=== PATIENT | male | born 1940 | race Caucasian/White ===

== ENCOUNTER 2019-04-19 09:24 | Outpatient (RCR) | payer MEDICARE, SELFPAY ==
[2019-02-05 12:32] LABS: INR 3.5; Prothrombin Time 36.2 Seconds (9.64-11.0)
[2019-02-22 13:00] LABS: INR 3.3; Prothrombin Time 34.8 Seconds (9.64-11.0)
[2019-04-03 08:07] LABS: INR 4.7; Prothrombin Time 49.4 Seconds (9.64-11.0)
[2019-04-19 09:56] LABS: INR 1.8; Prothrombin Time 18.7 Seconds (9.64-11.0)
== END 2019-05-06 23:59 | disposition home or self-care (01) ==
LOC: CHSLAB 09:24
PROVIDERS: PCP Internal Medicine
DX: I48.91 Unspecified atrial fibrillation (principal)
CPT/HCPCS: 36415; 85610

== ENCOUNTER 2019-05-03 11:07 | Inpatient (IN) | payer MEDICARE, SELFPAY ==
[2019-05-03] VITALS (18 sets, daily range): BP systolic 131–173; BP diastolic 79–107; PULSE 72–147; RESP 18–35; TEMP 36.3–36.8; O2SAT 81–100; BMI 21.8
--- NOTE | ~2019-05-03 | US_ITS ---
US venous doppler [facility] DATE: 05/04/2019 09:46 INDICATION: Shortness of breath, swelling of the lower extremities TECHNIQUE: Real-time and color flow imaging and Doppler analysis of the veins of the lower extremitie s COMPARISON: None FINDINGS: The greater saphenous veins are patent. There is spontaneous and phasic flow and normal aug mentation and color flow signal and normal compression of the deep veins of both lower extremities. IMPRESSION: No evidence of deep venous thrombosis of the lower extremities Reviewed, dictated and finalized at [facility]. Reviewed, dictated and finalized at location [facility]. H BREAKER MACHINE OPERATOR
--- NOTE | ~2019-05-03 | XR_ITS ---
EXAMINATION: XR barium swallow modified DATE: 05/04/2019 14:46 INDICATION: Dysphagia. TECHNIQUE: The patient was given barium-containing material of multiple consistencies to swallow by calvin montague speech pathologist while I performed fluoroscopy. Dose-area product was 1.255 Gy-cm2. 2.1 minutes fluoroscopy time FINDINGS: Oral Preparatory Stage: Within functional limits Oral Stage: Within functional limits Pharyngeal Phase: Within functional limits Cervical/Esophageal Stage: Within functional limits IMPRESSION: Modified esophagram findings as above. Please refer to the speech therapy report for spec [facility] recommendations. Reviewed, dictated and finalized at [facility]. Reviewed, dictated and finalized at location [facility]. STATION ATTENDANT IMPRESSION: Modified esophagram findings as above. Please refer to the speech t herapy report for specific recommendations.
--- NOTE | ~2019-05-03 | XR_ITS ---
EXAMINATION: XR chest 1V portable EXAM DATE: 05/03/2019 11:35 INDICATION: Cough and shortness of breath. TECHNIQUE: Frontal and lateral projections of the chest obtained and reviewed. Comparison is made to prior examination from 09/19/2016. FINDINGS: There is moderate amount of patchy bilateral airspace disease, could be multifocal broncho pneumonia. There is small right pleural effusion. Cardiomediastinal silhouette is normal. The main, c entral pulmonary arteries are dilated which can indicate elevated pulmonary arterial pressure, pulmon javier arterial hypertension. Can't exclude any underlying chronic process. There are bony degenerative changes. There is no pneumothorax suspected. IMPRESSION: 1. Moderate bilateral airspace disease could be acute bronchopneumonia. 2. Small right pleural effusion. 3. Follow-up indicated to exclude any underlying chronic process. Reviewed, dictated and finalized at location A. TRUCTION OR LEAK GANG LABORER
--- NOTE | 2019-05-03 11:21 | ED.SOB ---
HPI - SOB/Dyspnea General Chief Complaint: Shortness of Breath/Dyspnea Stated Complaint: diff breathing Time Seen by Provider: 05/03/19 11:21 Source: patient Mode of arrival: ambulatory Limitations: no limitations History of Present Illness HPI Narrative: Pt is a 79 y/o male who presents to the ED with c/o SOB that woke him up at 4AM this morning. Pt states that he is unable to cough and has BLE swelling. His manager risk is Dr. Dejesus in [place]. He has a H/o of AFIB and is on warfarin. MD elicited complaint: shortness of breath Onset (ago): hour(s) (7) Context: other (woke him up) Timing: constant Known history of: other (AFIB) Associated symptoms: other (BLE swelling) Related Data Allergies Allergy/AdvReac Type Severity Reaction Status Date / Time No Known Allergies Allergy Verified 05/03/19 11:26 Review of Systems Review of Systems: All systems reviewed & are unremarkable except as noted in HPI and below Respiratory: Respiratory: Denies cough and Reports dyspnea Musculoskeletal: Musculoskeletal: Reports other (BLE swelling) [facility] Past Medical History Medical History (Updated 05/03/19 @ 16:26 by Oswaldo Bonilla DO) Afib Anxiety Jacobs esophagus Brain aneurysm CAD (coronary artery disease) Cancer of right lung GERD (gastroesophageal reflux disease) HTN (hypertension) Hypothyroid Liver cyst Rheumatoid arthritis TIA (transient ischemic attack) Surgical History Surgical History (Updated 05/03/19 @ 11:31 by Nicole Masters) History of hydrocelectomy Hx of cholecystectomy Family History Family History (Updated 05/01/17 @ 11:03 by DOCTOR UNKNOWN) Other Family history of cardiovascular disease Hypertension Social History Social History Smoking status: Current every day smoker Alcohol intake: never Substance use: never Gender identity (if verbalized by the patient): Male Spiritual care concerns: No Agree to blood products: Yes Exam Narrative: Exam Narrative: APPEARANCE: Severe respiratory distress, sitting upright in bed, speaking short phrases nontoxic, resting in bed HEENT: Normocephalic, atraumatic OMM RESPIRATORY: Severe respiratory distress, sitting upright, crackles throughout the bilateral lung snell, no wheezing CARDIOVASCULAR: Irregular and tachycardic without murmurs rubs or gallops. ABDOMINAL: Soft, nontender, nondistended, no rebound or guarding MUSCULOSKELETAl: Moves all extremities. No clubbing, cyanosis 3+ edema the bilateral lower extremities NEURO: Awake and alert. Following commands, speech normal, no focal deficits SKIN:: Warm, dry. Normal Color PSYCHIATRIC: Normal affect/mood, Course Course Emergency Course: Patient is breathing much better on the BiPAP. I discussed with patient and family while the patient normally receives care at [facility] to continue BiPAP Marianela ramos will admit at [facility] Discussed with patient and family results of workup and diagnosis. Discussed need for admission. Patient and family understand and agree to current treatment plan Consultations Consultation #1: Discussed case with Dr. Dey, the manager risk. Will consult. Wants an echo ordered. Date: 05/03/19 Time: 12:26 Consultation #2: Discussed case with JEFF Hurst for the hospitalist. Accepted admission. Date: 05/03/19 Time: 12:35 Vital Signs Vital signs: Vital Signs Temperature 98.3 F 05/03/19 11:21 Pulse Rate 138 H 05/03/19 11:21 Respiratory Rate 35 H 05/03/19 11:21 Blood Pressure 173/101 H 05/03/19 11:21 Pulse Oximetry 81 L 05/03/19 11:21 Temperature 98.3 F 05/03/19 11:21 Pulse Rate 77 05/03/19 15:56 Respiratory Rate 31 H 05/03/19 15:56 Blood Pressure 137/85 05/03/19 15:22 Pulse Oximetry 90 05/03/19 15:56 MDM - SOB/Dyspnea Lab Data Result diagrams: 05/03/19 11:28 05/03/19 11:28 Labs: Lab Results 05/03/19 05/03/19
--- NOTE | 2019-05-03 11:22 | ECG_ITS ---
Measurements Intervals [place] Rate: 159 P: DE: 0 QRS: 107 QRSD: 124 T: -40 QT: 303 QTc: 494 Interpretive Statements ATRIAL FIBRILLATION WITH RAPID VENTRICULAR RESPONSE FREQUENT VENTRICULAR PREMATURE COMPLEXES RIGHT AXIS DEVIATION RIGHT BUNDLE BRANCH BLOCK BASELINE ARTIFACT- I, II, III, AVL, AVF, V-V3 ABNORMAL ECG Electronically Signed On 05-03-2019 11:25:38 COIL MACHINE OPERATOR by Akil Villa D.O.
[2019-05-03 11:36] LABS: Hematocrit 41.9 % (42.0-52.0); Hemoglobin 12.5 g/dL (14.0-18.0); Mean Corpuscular HGB Conc 29.8 g/dl (32-36); Mean Corpuscular Hemoglobin 29.3 pg (26-34); Mean Corpuscular Volume 98.4 fl (80-100); Mean Platelet Volume 9.6 fl (7.4-10.4); Platelet Count Result 200 k/mm3 (150-375); Red Blood Count 4.26 M/mm3 (4.6-6.20); Red Cell Distribution Width 20.2 % (11.5-14.5); White Blood Count 28.5 K/mm3 (4.5-10.0)
[2019-05-03 11:42] LABS: Hypochromasia 1+ (NORMAL); Lymphocytes Absolute Manual 1.42 K/mm3 (1.1-4.5); Monocytes Absolute Manual 0.57 K/mm3 (0.1-0.90); Monocytes Percent Manual 2 % (3-9); Neutrophils Percent Manual 93 % (46-73); Platelet Estimate Adequate (Adequate); Total Cells Counted 100
[2019-05-03 11:49] LABS: Blood Urea Nitrogen 16 mg/dL (9-20); Calcium 8.6 mg/dL (8.4-10.2); Carbon Dioxide 29 mmol/L (22-30); Chloride 98 mmol/L (98-107); Estimated CRCL calculation 65 ml/min; Estimated Glomerular Filt Rate > 60; Glucose 109 mg/dL (75-110); Lactic Acid Reflex 2.6 mmol/L (0.7-2.1); Potassium 3.4 mmol/L (3.4-5.0); Sodium 136 mmol/L (137-145)
[2019-05-03 11:52] LABS: INR 2.5; Prothrombin Time 26.8 Seconds (11.1-14.7)
[2019-05-03 11:52] LABS: Alveolar/Arterial O2 Gradient 149.2 mmHg; Base Excess ABG -0.1 mEq/l (+/-2.0); Fractional Inspired Oxygen 40 %; Oxygen Content ABG 16.3 %vol (16.0-22.0); Oxygen Saturation ABG 92.9 % (95.0-100.0); Oxyhemoglobin 88.9 % THb (90.0-100.0); PCO2 ABG 55.2 mmHg (35.0-45.0); PO2 ABG 72.5 mmHg (80.0-100.0); PO2 FiO2 Ratio Arterial Blood 1.81 %; pH ABG 7.308 (7.350-7.450)
[2019-05-03 11:53] LABS: Partial Thromboplastin Time 37.1 SECONDS (22.3-36.8)
[2019-05-03 11:54] LABS: Modified Allen's Test Pass; Site Drawn RIGHT RADIAL
[2019-05-03 11:55] LABS: Device NON-REBREATHER MASK
[2019-05-03 12:02] LABS: NT Pro B Type Natriuretic Pept 14500 PG/ML (5-100); Troponin I 0.021 ng/mL (0.000-0.034)
[2019-05-03] MEDS: SODIUM CHLORIDE 0.9% IV 500 ML 250 ML IV CONT (13:29)
[2019-05-03 14:34] LABS: Reflex Lactic Acid Yes or No Add Lactic
--- NOTE | 2019-05-03 15:32 | PM.CNCAR ---
Assessment and Plan Assessment and plan (1) Pneumonia: Code(s): J18.9 - Pneumonia, unspecified organism Status: Acute Assessment and Plan: Management per primary care (2) HTN (hypertension): Code(s): I10 - Essential (primary) hypertension Status: Acute Assessment and Plan: Currently well controlled. Continue medications (3) Afib: Code(s): I48.91 - Unspecified atrial fibrillation Status: Acute Assessment and Plan: Heart is moderately well controlled. Continue Cardizem for night for now. Continue current anticoagulation of Coumadin. Goal INR between 2 and 3 agree with echo to evaluate LV function. Thank you for consult. Will follow this patient together with you History of Present Illness History of Present Illness Consult date/time: 05/03/19 15:32 Mr. Mendez is a pleasant 79-year-old white male with past medical history of atrial fibrillation, GERD, hypothyroidism who presented to [facility] today because of shortness of breath. Patient is a poor historian and history is obtained predominantly from medical records, patient's family and nursing staff. According to the patient this morning his shortness of breath was getting significantly worse. he had some cough for last few days however denies any fever or chills. Patient is known to have pulmonary problems and is being followed by cork molder at [facility] in [facility]. Patient does have history of chronic atrial fibrillation and is being followed by merchandiser at [facility] (Dr. Dejesus). Pt does have occasional palpitations. He denies any chest discomfort or dizziness or syncopal episode. Patient was seen and examined while in the ER, records were reviewed, Case was discussed with ER physician, patient's family and his nurse. Reason For Visit: Acute respiratory failure with hypoxia Review of Systems Review of Systems: All systems reviewed & are unremarkable except as noted in HPI and below Constitutional: Constitutional: Reports as per HPI Eyes: Eyes: Reports as per HPI ENT: Reports system reviewed and no additional complaints, except as documented and Reports as per HPI Cardiovascular: Cardiovascular: Reports as per HPI, Reports rapid heart rate and Reports dyspnea Respiratory: Respiratory: Reports cough and Reports dyspnea Gastrointestinal: Gastrointestinal: Reports as per HPI Genitourinary: Genitourinary: Reports as per HPI Musculoskeletal: Musculoskeletal: Reports as per HPI [facility] Past Medical History Medical History (Updated 02/07/20 @ 15:45 by Demar Copeland MD) Afib Anxiety Jacobs esophagus Brain aneurysm CAD (coronary artery disease) Cancer of right lung GERD (gastroesophageal reflux disease) HTN (hypertension) Hypothyroid Liver cyst Rheumatoid arthritis TIA (transient ischemic attack) Surgical History Surgical History (Updated 05/03/19 @ 11:31 by Nicoel Masters) History of hydrocelectomy Hx of cholecystectomy Family History Family History (Updated 05/01/17 @ 11:03 by DOCTOR UNKNOWN) Other Family history of cardiovascular disease Hypertension Social History Social History Smoking status: Current every day smoker Alcohol intake: current Meds Home Medications and Allergies Allergies Allergy/AdvReac Type Severity Reaction Status Date / Time No Known Allergies Allergy Verified 05/03/19 11:26 Vital Signs Vital Signs - 24 hr 05/03/19 11:21 05/03/19 11:24 05/03/19 11:25 Temperature 36.8 C Pulse Rate 138 H 146 H Respiratory Rate 35 H Blood Pressure 173/101 H Pulse Oximetry 81 L 94 05/03/19 11:40 05/03/19 12:44 05/03/19 13:34 Temperature Pulse Rate 142 H 147 H Respiratory Rate 30 H 30 H 20 Blood Pressure 134/83 142/107 H Pulse Oximetry 100 05/03/19 14:57 05/03/19 15:22 Temperature Pulse Rate 122 H 108 H Respirator
--- NOTE | 2019-05-03 15:40 | ADMGEN ---
This patient, Moraima Mendez, was admitted to IMU Room 232-01. Patient/family oriented to hospital policies and general routines including ID bracelet, bed and alarms, visiting hours, pain management, procedures, bathroom and other care routines, personal items, smoking policy, room service/diet, and visiting hours. Valuables list has been completed. Information on how to activate the Rapid Response Team has been discussed. Patient/Family are encouraged to report perceived risks to care and to ask questions if they do not understand what they are told or what they should do.
[2019-05-03 16:30] LABS: Troponin I 0.028 ng/mL (0.000-0.034)
[2019-05-03] MEDS: FUROSEMIDE INJ 40 MG/4 ML VIAL 20 MG IV PUSH (17:08)
[2019-05-03 18:07] LABS: Alveolar/Arterial O2 Gradient 129.1 mmHg; Carboxyhemoglobin 2.1 % THb (0-2.0); Fractional Inspired Oxygen 40 %; HCO3 ABG 22.7 mEq/l (22.0-26.0); Methemoglobin ABG 0.4 %THb (0-1.5); Oxygen Content ABG 16.5 %vol (16.0-22.0); Oxygen Saturation ABG 97.6 % (95.0-100.0); Oxyhemoglobin 94.7 % THb (90.0-100.0); PCO2 ABG 43.2 mmHg (35.0-45.0); PO2 ABG 106.4 mmHg (80.0-100.0); PO2 FiO2 Ratio Arterial Blood 2.66 %; Reduced Hemoglobin 2.8 %THb (0-5.0); Total Hemoglobin 12.3 g/dL (12.0-18.0); pH ABG 7.339 (7.350-7.450)
[2019-05-03 18:08] LABS: Device NON-INVASIVE VENT; Modified Allen's Test Pass; Site Drawn LEFT RADIAL
[2019-05-03 18:09] LABS: Non-Invasive Expiratory Pressure 6 CMH2O; Non-Invasive Inspiratory Pressure 12 CMH2O
[2019-05-03 19:47] LABS: Troponin I 0.031 ng/mL (0.000-0.034)
--- NOTE | 2019-05-03 21:00 | PM.IMHP ---
H&P: HPI History of Present Illness Chief complaint: Shortness of breath. Narrative: Moraima Mendez is a pleasant 79-year-old male with multiple medical problems including atrial fibrillation on long-term anticoagulation, tobacco dependence, suspected COPD, rheumatoid arthritis, hypertension, and history of lung cancer status post radiation who presented to the emergency department earlier this morning via private vehicle from home for evaluation of shortness of breath. Approximately 2 or 3 weeks ago he had cold symptoms and was seen by his physician at [facility]. At that time he was diagnosed with ?possible pneumonia? and was prescribed an extra inhaler and antibiotics, which he completed. He seemed to feel better in that regard up until earlier this morning. He woke at 04:00 hours to use the restroom, and was extremely short of breath at that time. He used his inhalers however they did not provide him with much benefit. He was short of breath for several hours thereafter, and when his son came to visit he was noted to only be speaking in 2 word sentences and appeared to be in respiratory distress. On arrival to the emergency department, his SpO2 was 81% on room air. He was immediately placed on BiPAP due to respiratory distress, with improvement. At the time of my evaluation he is much more comfortable on BiPAP, but is wishing to take a break from that. When the BiPAP was removed, he was placed on 3 liters nasal cannula with SpO2 in the upper 90s. He did report that it was a bit harder to breathe with the BiPAP off. He does mention having a cough, but ?feels like it is stuck in my chest? and has not been very productive. He also notes mild orthopnea and the development of lower extremity edema over the last several weeks. Reportedly he had an echocardiogram done at [facility] within the past several weeks, which she was told was unremarkable. He was, however, started on daily furosemide. He adamantly denies history of congestive heart failure and has no history of venous thromboembolism. He has not felt lightheaded or dizzy. He denies fever, chills, and sweats. No dysphagia or concerns for aspiration. He denies chest pain and palpitations, and does not feel any irregularities although he is in atrial fibrillation with rapid ventricular response at this time. No nausea, vomiting, or diarrhea. Review of Systems Review of Systems: Narrative: Twelve systems were reviewed with pertinent positives and negatives as per HPI. He recently treated with antibiotics as per HPI. Symptoms had improved up until early this morning. He has felt weak since that time. No confusion. No history of sleep apnea. No significant GERD or indigestion. He denies concerns for aspiration. No history of venous thromboembolism. He is on methotrexate for his rheumatoid arthritis, and is able to take up to 15 milligrams of prednisone daily as needed for pain but has not taken that for quite some time. Except as documented, all other systems were reviewed and are negative. [facility] Past Medical History Medical History (Updated 05/03/19 @ 22:45 by Leeanna Winter PA-C) Anxiety Atrial fibrillation Jacobs esophagus Brain aneurysm Coiled in August 2016. Cancer of right lung Treated with radiation. GERD (gastroesophageal reflux disease) HTN (hypertension) Hypothyroid Liver cyst Rheumatoid arthritis TIA (transient ischemic attack) Tobacco dependence Surgical History Surgical History (Updated 05/03/19 @ 22:36 by Leeanna Winter PA-C) History of hydrocelectomy Hx of cholecystectomy Status post left inguinal herniorrhaphy Family History Family History Other Family history of cardiovascular disease Hypertension Social History Social History (Updated 05/03/19 @ 22:36 by Leeanna Winter PA-C) Social History: The patient lives with his daughter in [place]. He is retired and
[2019-05-03] MEDS: IPRATROPIUM BR 0.02% INH SOLN 0.5 MG/2.5 ML VIAL INHALATION (23:09)
[2019-05-03] MEDS: methylPREDNISolone SOD SUCC 125 MG VIAL 80 MG IV PUSH (23:44)
[2019-05-04] VITALS (31 sets, daily range): BP systolic 109–125; BP diastolic 73–86; PULSE 88–136; RESP 16–27; TEMP 36.2–37; O2SAT 91–100
--- NOTE | 2019-05-04 | ECHO_ITS ---
Patient Info Name: Moraima Mendez Age: 79 years : 1940 Gender: Male Ht: 71 in Wt: 158 lbs BSA: 1.89 m2 HR: 109 bpm BP: 122 / 86 mmHg Technical Quality: Good Exam Date: 05/04/2019 7:02 AM Exam Location: [facility] Patient Status: Inpatient Admit Date: 05/03/2019 Staff Ordering Physician: Oswaldo Bonilla DO [place] Miner: Apple Balbuena RDCS Attending Provider: Byron Galarza MD Referring Physician: Chad CRAIG; Exam Type: CA echo doppler color flow Study Info Complete two-dimensional, color flow and Doppler transthoracic echocardiogram is performed. Summary 1. Left ventricular chamber dimension is normal. 2. Left ventricular systolic function is normal, estimated at 65-70%. 3. There is mildly increased left ventricular wall thickness. 4. Right ventricular chamber dimension is mildly enlarged. 5. moderate sclerosis of the aortic valve leaflets. 6. There is trace mitral valve regurgitation. 7. There is mild tricuspid valve regurgitation. 8. There is mild aortic valve stenosis. Left Ventricle Left ventricular chamber dimension is normal. Left ventricular systolic function is normal, estimated at 65-70%. There is mildly increased left ventricular wall thickness. The left ventricular diastolic function is normal. Right Ventricle Right ventricular chamber dimension is mildly enlarged. Right ventricular systolic function is normal. Left Atria Left atrial chamber dimension is normal. Right Atria Right atrial chamber dimension is normal. Aortic Valve The aortic valve is trileaflet. There is mild aortic valve stenosis. There is no aortic valve regurgitation. moderate sclerosis of the aortic valve leaflets. Mitral Valve The mitral valve has normal leaflets. There is no mitral valve stenosis. There is trace mitral valve regurgitation. Tricuspid Valve There is mild tricuspid valve regurgitation. Pericardium/Pleural The pericardium appears normal. There is no pericardial effusion. Left Ventricular Outflow Tract Name Value Normal LVOT 2D LVOT Diameter 2.1 cm LVOT Doppler LVOT Peak Velocity 87 cm/s LVOT Peak Gradient 3 mmHg LVOT Mean Gradient 1 mmHg LVOT VTI 13 cm LVOT VTI/AV VTI Ratio 0.3 LVOT Stroke Volume 44 ml LVOT CO 4.8 l/min LVOT CI 2.6 l/min/m2 Pulmonic Valve Name Value Normal PV Doppler PV Peak Velocity 82 cm/s PV Peak Gradient 3 mmHg Mitral Valve Name Value Normal
[2019-05-04] MEDS: METOPROLOL TARTRATE 50 MG TAB PO ×3 (00:51→20:48)
[2019-05-04] MEDS: ALPRAZOLAM 0.5 MG TABLET PO ×2 (00:51→20:49)
[2019-05-04] MEDS: IPRATROPIUM BR 0.02% INH SOLN 0.5 MG/2.5 ML VIAL INHALATION ×4 (01:41→21:44)
[2019-05-04 05:22] LABS: Basophils Percent Auto 0.1 % (0.2-1.2); Eosinophils Percent Auto 0.1 % (0-4.4); Hematocrit 38.1 % (42.0-52.0); Hemoglobin 11.5 g/dL (14.0-18.0); Immature Granulocyte Absolute 0.15 K/mm3 (0.00-0.031); Immature Granulocyte Percent A 0.9 % (0-0.5); Lymphocytes Absolute Auto 0.19 K/mm3 (0.9-3.2); Lymphocytes Percent Auto 1.1 % (18.3-44.2); Mean Corpuscular HGB Conc 30.2 g/dl (32-36); Mean Corpuscular Hemoglobin 29.2 pg (26-34); Mean Corpuscular Volume 96.7 fl (80-100); Mean Platelet Volume 9.2 fl (7.4-10.4); Monocytes Percent Auto 0.2 % (2.6-8.5); Neutrophils Absolute Auto 16.9 K/mm3 (1.3-6.7); Neutrophils Percent Auto 97.6 % (45.5-73.1); Platelet Count Result 137 k/mm3 (150-375); Red Blood Count 3.94 M/mm3 (4.6-6.20); Red Cell Distribution Width 19.5 % (11.5-14.5); White Blood Count 17.3 K/mm3 (4.5-10.0)
[2019-05-04 05:26] LABS: INR 2.9
[2019-05-04 05:32] LABS: Blood Urea Nitrogen 15 mg/dL (9-20); Calcium 8.4 mg/dL (8.4-10.2); Carbon Dioxide 32 mmol/L (22-30); Chloride 99 mmol/L (98-107); Estimated CRCL calculation 65 ml/min; Estimated Glomerular Filt Rate > 60; Glucose 99 mg/dL (75-110); Potassium 4.2 mmol/L (3.4-5.0); Sodium 138 mmol/L (137-145)
[2019-05-04] MEDS: LEVOTHYROXINE SODIUM 75 MCG TABLET PO (06:57)
[2019-05-04 07:28] LABS: Hypochromasia 1+ (NORMAL); Ovalocytes 1+ (NORMAL); Platelet Estimate Decreased (Adequate)
[2019-05-04] MEDS: CHOLECALCIFEROL 400 UNITS TABLET (VIT D) PO (09:06)
[2019-05-04] MEDS: FERROUS SULFATE 324 MG TABLET PO (09:06)
[2019-05-04] MEDS: FOLIC ACID 0.4 MG TABLET PO (09:06)
[2019-05-04] MEDS: PANTOPRAZOLE 40 MG TABLET PO ×2 (09:06→16:20)
[2019-05-04] MEDS: FUROSEMIDE 40 MG TABLET PO (09:06)
[2019-05-04] MEDS: CYANOCOBALAMIN 1,000 MCG TABLET 1000 MCG PO (09:06)
[2019-05-04] MEDS: MEGESTROL ACETATE (*CHEMO) ORAL SUSP 40 MG/ML SYR 400 MG PO (09:07)
--- NOTE | 2019-05-04 11:58 | PM.PNCARD ---
Progress Note: A&P Assessment and Plan (1) Pneumonia: Code(s): J18.9 - Pneumonia, unspecified organism Status: Acute Assessment and Plan: Management per primary care (2) HTN (hypertension): Code(s): I10 - Essential (primary) hypertension Status: Acute Assessment and Plan: Currently well controlled. Continue medications (3) Afib: Code(s): I48.91 - Unspecified atrial fibrillation Status: Acute Assessment and Plan: Heart is moderately well controlled. Continue Cardizem for night for now. We increased the rate to 15 mg an hour, on follow-up rhythm, and was switched to oral Cardizem 1 rate is well controlled Echocardiogram showed normal left ventricular systolic function, mild pulmonary hypertension, and sclerotic aortic valve Subjective Date/time seen: 05/04/19 11:58 He feels slightly better today, still with tachycardia, currently on Cardizem drip, initially increased to 12 mg an hour, and now we can increase to 15 mg an hour Exam Const: General: alert, awake and in distress mild Nutritional Appearance: cachectic HENMT: Head: normal to inspection and atraumatic Ears: hearing grossly normal bilaterally Face and sinus: normal facial exam Eyes: General: appearance normal, both eyes and all related structures Pupils: Equal, round and reactive pupils present EOM: EOMs intact bilaterally Neck: Neck: normal visual inspection and no JVD Chest: Chest palpation & inspection: normal inspection of the chest Resp: Effort & Inspection: normal respiratory effort, Actively coughing and respiratory distress (mild on BIPAP) Auscultation: diminished lung sounds Cardio: Jugular venous distension: no JVD Rate: tachycardic Heart sounds: Murmur heart sound present systolic GI: Inspection: normal to inspection Auscultation: normal bowel sounds Skin: General skin exam: normal color Neuro: Cranial nerves: Yes Equal, round and reactive pupils present Extrem: General: edema bilateral (2+) Objective Data Vital Signs Vital Signs: Vital Signs - 24 hr 05/03/19 12:44 05/03/19 13:34 05/03/19 14:20 Temperature Pulse Rate 142 H 147 H 116 H Respiratory Rate 30 H 20 29 H Blood Pressure 134/83 142/107 H Pulse Oximetry 100 100 05/03/19 14:57 05/03/19 15:22 05/03/19 15:56 Temperature Pulse Rate 122 H 108 H 77 Respiratory Rate 18 18 31 H Blood Pressure 143/83 H 137/85 Pulse Oximetry 98 100 90 05/03/19 16:00 05/03/19 18:00 05/03/19 20:00 Temperature 36.3 C L 36.3 C L Pulse Rate 116 H 128 H 128 H Respiratory Rate 28 H 23 H Blood Pressure 165/82 H 131/79 Pulse Oximetry 92 92 05/03/19 20:53 05/03/19 22:00 05/03/19 23:00 Temperature Pulse Rate 125 H 120 H 122 H Respiratory Rate 23 H 23 H Blood Pressure Pulse Oximetry 92 05/03/19 23:13 05/03/19 23:15 05/04/19 00:00 Temperature Pulse Rate 122 H 122 H 121 H Respiratory Rate 23 H 23 H 25 H Blood Pressure Pulse Oximetry 91 100 05/04/19 00:30 05/04/19 00:51 05/04/19 01:35 Temperature 36.4 C L Pulse Rate 111 H 121 H 95 Respiratory Rate 25 H 21 H Blood Pressure 125/76 Pulse Oximetry 100 05/04/19 01:42 05/04/19 01:43 05/04/19 02:00 Temperature Pulse Rate 94 96 88 Respiratory Rate 21 H 21 H Blood Pressure Pulse Oximetry 91 05/04/19 04:00 05/04/19 05:55 05/04/19 08:00 Temperature 36.2 C L Pulse Rate 95 103 H 114 H Respiratory Rate 16 Blood Pressure 122/86 Pulse Oximetry 91 05/04/19 08:18 05/04/19 08:30 05/04/19 08:32 Temperature 36.9 C Pulse Rate 110 H 120 H 120 H Respiratory Rate 27 H 21 H 21 H Blood Pressure 110/73 Pulse Oximetry 100 96 05/04/19 08:41 05/04/19 09:06 05/04/19 10:00 Temperature Pulse Rate 116 H 136 H 107 H Respiratory Rate 20 Blood Pressure Pulse Oximetry Intake/Output Intake/Output: Intake & Output 05/01/19 05/02/19 05/03/19 05/04/19 23:59 23:59 23:59 23:59 Intake Total 900 2
--- NOTE | 2019-05-04 13:57 | P.PNIM_ITS ---
Progress Note: A&P Assessment and Plan (1) Sepsis: Qualifiers: Sepsis type: sepsis due to unspecified organism Sepsis acute organ dysfunction status: without acute organ dysfunction Qualified Code(s): A41.9 - Sepsis, unspecified organism Code(s): A41.9 - Sepsis, unspecified organism Status: Acute Assessment and Plan: * Present on admission and supported by tachycardia, leukocytosis, and elevated lactic acid level. * Improving after saline bolus and antibiotics * Blood cultures have been obtained and are pending. (2) Acute respiratory failure with hypoxia: Code(s): J96.01 - Acute respiratory failure with hypoxia Status: Acute Assessment and Plan: * Presumably due to pneumonia in addition to likely underlying COPD, which the patient has apparently never been diagnosed with. * BNP is markedly elevated, and he had an echocardiogram done last month with good left ventricular function * Tolerating nasal cannula oxygen and off BiPAP * Continue steroids antibiotics and bronchodilators (3) Atrial fibrillation with rapid ventricular response: Code(s): I48.91 - Unspecified atrial fibrillation Status: Acute Assessment and Plan: * Transition from IV to oral Cardizem * INR is therapeutic at 2.5. (4) Community acquired pneumonia: Qualifiers: Laterality: unspecified laterality Qualified Code(s): J18.9 - Pneumonia, unspecified organism Code(s): J18.9 - Pneumonia, unspecified organism Status: Acute Assessment and Plan: * Continue azithromycin and ceftriaxone per antibiotic stewardship recommenda tions. * Sputum for culture unsuccessful due to inability to produce * Will send specimens for urinary antigens for pneumococcus and Legionella * Continue antibiotics, steroids, and bronchodilators * Mucinex and Cornet for pulmonary toilet * Modified barium swallow * Patient is determined to go home May 05 to attend [facility] service for his daughter who approximately 2 weeks ago. (5) Tobacco dependence: Code(s): F17.200 - Nicotine dependence, unspecified, uncomplicated Status: Acute Assessment and Plan: * He declined smoking cessation or nicotine patch (6) Rheumatoid arthritis: Qualifiers: Rheumatoid arthritis location: unspecified site Rheumatoid factor presence: unspecified presence Qualified Code(s): M06.9 - Rheumatoid arthritis, unspecified Code(s): M06.9 - Rheumatoid arthritis, unspecified Status: Acute Assessment and Plan: * He takes methotrexate weekly and prednisone as needed. * He has not required prednisone for quite some time * Hold methotrexate due to acute infection Subjective Date/time seen: 05/04/19 13:57 Interval history: Nonproductive cough. Chronic left weakness. Denied pain. Bowels moved. No urinary complaints. No nausea or vomiting. No chest pain. No shortness of breath at rest. Chronic edema stable. No fevers or chills or sweats. Review of Systems Review of Systems: All systems reviewed & are unremarkable except as noted in HPI and below Exam Narrative: Exam Narrative: HEENT: EOMI, PERRL, pharyngeal mucosa pink and intact NECK: No JVD CHEST: Coarse breath sounds throughout HEART: NL S1/S2, irregular and tachycardic ABDOMEN: BS+, soft, nontender, no mass, no bruits EXTREMITIES: No cyanosis, 2+ pretibial and ankle edema with chronic venous stasis changes NEUROLOGIC: CN intact an
--- NOTE | 2019-05-04 13:57 | PM.IMPN ---
Progress Note: A&P Assessment and Plan (1) Sepsis: Qualifiers: Sepsis type: sepsis due to unspecified organism Sepsis acute organ dysfunction status: without acute organ dysfunction Qualified Code(s): A41.9 - Sepsis, unspecified organism Code(s): A41.9 - Sepsis, unspecified organism Status: Acute Assessment and Plan: Present on admission and supported by tachycardia, leukocytosis, and elevated lactic acid level. Improving after saline bolus and antibiotics Blood cultures have been obtained and are pending. (2) Acute respiratory failure with hypoxia: Code(s): J96.01 - Acute respiratory failure with hypoxia Status: Acute Assessment and Plan: Presumably due to pneumonia in addition to likely underlying COPD, which the patient has apparently never been diagnosed with. BNP is markedly elevated, and he had an echocardiogram done last month with good left ventricular function Tolerating nasal cannula oxygen and off BiPAP Continue steroids antibiotics and bronchodilators (3) Atrial fibrillation with rapid ventricular response: Code(s): I48.91 - Unspecified atrial fibrillation Status: Acute Assessment and Plan: Transition from IV to oral Cardizem INR is therapeutic at 2.5. (4) Community acquired pneumonia: Qualifiers: Laterality: unspecified laterality Qualified Code(s): J18.9 - Pneumonia, unspecified organism Code(s): J18.9 - Pneumonia, unspecified organism Status: Acute Assessment and Plan: Continue azithromycin and ceftriaxone per antibiotic stewardship recommendations. Sputum for culture unsuccessful due to inability to produce Will send specimens for urinary antigens for pneumococcus and Legionella Continue antibiotics, steroids, and bronchodilators [facility] pulmonary toilet Modified barium swallow Patient is determined to go home May 05 to attend [facility] service for his daughter who approximately 2 weeks ago. (5) Tobacco dependence: Code(s): F17.200 - Nicotine dependence, unspecified, uncomplicated Status: Acute Assessment and Plan: He declined smoking cessation or nicotine patch (6) Rheumatoid arthritis: Qualifiers: Rheumatoid arthritis location: unspecified site Rheumatoid factor presence: unspecified presence Qualified Code(s): M06.9 - Rheumatoid arthritis, unspecified Code(s): M06.9 - Rheumatoid arthritis, unspecified Status: Acute Assessment and Plan: He takes methotrexate weekly and prednisone as needed. He has not required prednisone for quite some time Hold methotrexate due to acute infection Subjective Date/time seen: 05/04/19 13:57 Interval history: Nonproductive cough. Chronic left weakness. Denied pain. Bowels moved. No urinary complaints. No nausea or vomiting. No chest pain. No shortness of breath at rest. Chronic edema stable. No fevers or chills or sweats. Review of Systems Review of Systems: All systems reviewed & are unremarkable except as noted in HPI and below Exam Narrative: Exam Narrative: HEENT: EOMI, PERRL, pharyngeal mucosa pink and intact NECK: No JVD CHEST: Coarse breath sounds throughout HEART: NL S1/S2, irregular and tachycardic ABDOMEN: BS+, soft, nontender, no mass, no bruits EXTREMITIES: No cyanosis, 2+ pretibial and ankle edema with chronic venous stasis changes NEUROLOGIC: CN intact and symmetric to inspection. MUSCULOSKELETAL: Tone and strength symmetric. PSYCH: Alert. Oriented to person, place, and time. Objective Data Vital Signs Vital Signs: Vital Signs - 24 hr 05/03/19 14:20 05/03/19 14:57 05/03/19 15:22 Temperature Pulse Rate 116 H 122 H 108 H Respiratory Rate 29 H 18 18 Blood Pressure 143/83 H 137/85 Pulse Oximetry 100 98 100 05/03/19 15:56 05/03/19 16:00 05/03/19 18:00 Temperature 97.4 F L Pulse Rate 77 116 H 128 H Resp
[2019-05-04] MEDS: methylPREDNISolone SOD SUCC 125 MG VIAL 60 MG IV PUSH (15:19)
[2019-05-04] MEDS: WARFARIN (*PBKC) 2 MG TABLET PO (16:21)
[2019-05-04] MEDS: SACCHAROMYCES BOULARDII 250 MG CAPSULE PO (18:51)
[2019-05-04] MEDS: AMIODARONE HCL 200 MG TABLET 400 MG PO (18:51)
[2019-05-05] VITALS (24 sets, daily range): BP systolic 108–128; BP diastolic 62–76; PULSE 86–119; RESP 17–20; TEMP 36.4–37.1; O2SAT 90–100
[2019-05-05] MEDS: IPRATROPIUM BR 0.02% INH SOLN 0.5 MG/2.5 ML VIAL INHALATION ×3 (01:42→15:24)
[2019-05-05 05:10] LABS: Hematocrit 31.5 % (42.0-52.0); Hemoglobin 9.7 g/dL (14.0-18.0); Mean Corpuscular HGB Conc 30.8 g/dl (32-36); Mean Corpuscular Volume 94.3 fl (80-100); Mean Platelet Volume 9.1 fl (7.4-10.4); Platelet Count Result 150 k/mm3 (150-375); Red Blood Count 3.34 M/mm3 (4.6-6.20); White Blood Count 11.7 K/mm3 (4.5-10.0)
[2019-05-05 05:28] LABS: Blood Urea Nitrogen 26 mg/dL (9-20); Calcium 8.7 mg/dL (8.4-10.2); Carbon Dioxide 29 mmol/L (22-30); Chloride 95 mmol/L (98-107); Estimated CRCL calculation 66 ml/min; Estimated Glomerular Filt Rate > 60; Glucose 173 mg/dL (75-110); Potassium 3.9 mmol/L (3.4-5.0); Sodium 134 mmol/L (137-145)
[2019-05-05] MEDS: LEVOTHYROXINE SODIUM 75 MCG TABLET PO (05:49)
[2019-05-05] MEDS: CYANOCOBALAMIN 1,000 MCG TABLET 1000 MCG PO (09:13)
[2019-05-05] MEDS: METOPROLOL TARTRATE 50 MG TAB PO (09:13)
[2019-05-05] MEDS: AMIODARONE HCL 200 MG TABLET 400 MG PO ×2 (09:13→15:51)
[2019-05-05] MEDS: FERROUS SULFATE 324 MG TABLET PO (09:13)
[2019-05-05] MEDS: CHOLECALCIFEROL 400 UNITS TABLET (VIT D) PO (09:13)
[2019-05-05] MEDS: PANTOPRAZOLE 40 MG TABLET PO ×2 (09:13→15:52)
[2019-05-05] MEDS: FOLIC ACID 0.4 MG TABLET PO (09:13)
[2019-05-05] MEDS: FUROSEMIDE 40 MG TABLET PO (09:14)
[2019-05-05] MEDS: SACCHAROMYCES BOULARDII 250 MG CAPSULE PO ×2 (09:14→15:52)
[2019-05-05] MEDS: predniSONE 20 MG TABLET 40 MG PO (09:14)
--- NOTE | 2019-05-05 11:16 | PCRCNOTE ---
HOME O2 EVAL COMPLETE; PT. DOES NOT REQUIRE HOME OXYGEN. PT.'S R.N. AND DR. KIM BOTH NOTIFIED OF THE RESULTS. GREEN CARD PLACED ON THE CHART.
--- NOTE | 2019-05-05 11:21 | PM.PNCARD ---
Progress Note: A&P Assessment and Plan (1) Pneumonia: Code(s): J18.9 - Pneumonia, unspecified organism Status: Acute Assessment and Plan: Management per primary care (2) HTN (hypertension): Code(s): I10 - Essential (primary) hypertension Status: Acute Assessment and Plan: Currently well controlled. Continue medications (3) Afib: Code(s): I48.91 - Unspecified atrial fibrillation Status: Acute Assessment and Plan: Heart rate is well controlled now, but he had to be started on amiodarone, okay to be discharged home but will cut the amiodarone to 200 mg p.o. 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 He is on Coumadin INR is therapeutic number he needs to have recheck on INR in view of recent use of amiodarone. He was instructed to have an INR checked in 3-4 days results to go to his doctor Dr. Dejesus or to myself Echocardiogram showed normal left ventricular systolic function, mild pulmonary hypertension, and sclerotic aortic valve Subjective Date/time seen: 05/05/19 11:21 Feels better today, still with mild cough and mild shortness of breath, no palpitation no dizziness, heart rate is now well controlled Exam Const: General: alert, awake and in distress mild Nutritional Appearance: cachectic HENMT: Head: normal to inspection and atraumatic Ears: hearing grossly normal bilaterally Face and sinus: normal facial exam Eyes: General: appearance normal, both eyes and all related structures Pupils: Equal, round and reactive pupils present EOM: EOMs intact bilaterally Neck: Neck: normal visual inspection and no JVD Chest: Chest palpation & inspection: normal inspection of the chest Resp: Effort & Inspection: normal respiratory effort, Actively coughing and respiratory distress (mild on BIPAP) Auscultation: diminished lung sounds Cardio: Jugular venous distension: no JVD Rate: tachycardic Heart sounds: Murmur heart sound present systolic GI: Inspection: normal to inspection Auscultation: normal bowel sounds Skin: General skin exam: normal color Neuro: Cranial nerves: Yes Equal, round and reactive pupils present Extrem: General: edema bilateral (2+) Objective Data Vital Signs Vital Signs: Vital Signs - 24 hr 05/04/19 12:00 05/04/19 13:19 05/04/19 14:00 Temperature 36.2 C L Pulse Rate 103 H 107 H 116 H Respiratory Rate 20 Blood Pressure 109/77 Pulse Oximetry 98 05/04/19 14:35 05/04/19 14:43 05/04/19 16:00 Temperature Pulse Rate 103 H 100 127 H Respiratory Rate 20 20 Blood Pressure Pulse Oximetry 05/04/19 16:49 05/04/19 18:00 05/04/19 18:51 Temperature 36.7 C Pulse Rate 117 H 114 H 125 H Respiratory Rate 20 Blood Pressure 124/73 Pulse Oximetry 100 05/04/19 19:38 05/04/19 20:00 05/04/19 20:48 Temperature 37.0 C Pulse Rate 121 H 117 H 118 H Respiratory Rate 18 18 Blood Pressure 118/80 Pulse Oximetry 100 100 05/04/19 21:44 05/04/19 21:57 05/04/19 22:00 Temperature Pulse Rate 102 H 107 H 100 Respiratory Rate 20 20 Blood Pressure Pulse Oximetry 100 05/05/19 00:00 05/05/19 01:46 05/05/19 01:55 Temperature 36.5 C Pulse Rate 97 92 93 Respiratory Rate 18 20 18 Blood Pressure 114/72 Pulse Oximetry 100 05/05/19 02:00 05/05/19 04:00 05/05/19 05:44 Temperature 36.4 C Pulse Rate 99 103 H 99 Respiratory Rate 18 17 Blood Pressure 125/76 Pulse Oximetry 93 100 05/05/19 06:00 05/05/19 07:49 05/05/19 08:00 Temperature Pulse Rate 103 H 109 H Respiratory Rate Blood Pressure Pulse Oximetry 95 05/05/19 08:53 05/05/19 08:57 05/05/19 08:58 Temperature 36.4 C L Pulse Rate 112 H 109 H Respiratory Rate 20 20 Blood Pressure 128/73 Pulse Oximetry 93 92 05/05/19 09:05 05/05/19 09:13 05/05/19 09:40 Temperature Pulse Rate
--- NOTE | 2019-05-05 12:03 | P.DS_ITS ---
DS: Diagnosis Admitting Diagnosis Admitting Diagnosis: Pneumonia, unspecified organism Discharge Diagnosis (1) Sepsis: Qualifiers: Sepsis type: sepsis due to unspecified organism Sepsis acute organ dysfunction status: without acute organ dysfunction Qualified Code(s): A41.9 - Sepsis, unspecified organism Code(s): A41.9 - Sepsis, unspecified organism Status: Acute Assessment and Plan: * Present on admission and supported by tachycardia, leukocytosis, and elevated lactic acid level. * Improving after saline bolus and antibiotics * Blood cultures negative (2) Acute respiratory failure with hypoxia: Code(s): J96.01 - Acute respiratory failure with hypoxia Status: Acute Assessment and Plan: * Presumably due to pneumonia in addition to likely underlying COPD, which the patient has apparently never been diagnosed with. * BNP is markedly elevated, and he had an echocardiogram done last month with good left ventricular function * Tolerating nasal cannula oxygen and off BiPAP * Continue steroids antibiotics and bronchodilators (3) Atrial fibrillation with rapid ventricular response: Code(s): I48.91 - Unspecified atrial fibrillation Status: Acute Assessment and Plan: * Transition from IV to oral Cardizem * INR is therapeutic at 2.5. (4) Community acquired pneumonia: Qualifiers: Laterality: unspecified laterality Qualified Code(s): J18.9 - Pneumonia, unspecified organism Code(s): J18.9 - Pneumonia, unspecified organism Status: Acute Assessment and Plan: * Continue azithromycin and ceftriaxone per antibiotic stewardship recommendations. * Sputum for culture unsuccessful due to inability to produce * Will send specimens for urinary antigens for pneumococcus and Legionella * Continue antibiotics, steroids, and bronchodilators * Mucinex and Cornet for pulmonary toilet * Modified barium swallow * Patient is determined to go home May 05 to attend [facility] for his daughter who approximately 2 weeks ago. (5) Tobacco dependence: Code(s): F17.200 - Nicotine dependence, unspecified, uncomplicated Status: Acute Assessment and Plan: * He declined smoking cessation or nicotine patch (6) Rheumatoid arthritis: Qualifiers: Rheumatoid arthritis location: unspecified site Rheumatoid factor presence: unspecified presence Qualified Code(s): M06.9 - Rheumatoid arthritis, unspecified Code(s): M06.9 - Rheumatoid arthritis, unspecified Status: Acute Assessment and Plan: * He takes methotrexate weekly and prednisone as needed. * He has not required prednisone for quite some time * Hold methotrexate due to acute infection DS: Summary Hospital Course Reason for hospitalization: Cough and dyspnea Hospital Course: Patient presented with cough and dyspnea. Found to have for pneumonia and atrial fibrillation with RVR. Responded well to IV diltiazem followed by amiodarone. Treated with doxycycline and ceftriaxone. And prednisone. Bronchodilators. Pulmonary toilet. Discharged home in improved and stable condition. Status at Discharge Functional status at discharge: independent ambulation Overall status at discharge: patient is progressing back to baseline Time Spent with Patient Time attestation: Total time spent providing and/or coordinating discharge services: 35 min Exam Narrative: Exam Narrative: HEENT: EOMI, PERRL, pharyngeal mucos
--- NOTE | 2019-05-05 12:03 | PM.DS ---
DS: Diagnosis Admitting Diagnosis Admitting Diagnosis: Pneumonia, unspecified organism Discharge Diagnosis (1) Sepsis: Qualifiers: Sepsis type: sepsis due to unspecified organism Sepsis acute organ dysfunction status: without acute organ dysfunction Qualified Code(s): A41.9 - Sepsis, unspecified organism Code(s): A41.9 - Sepsis, unspecified organism Status: Acute Assessment and Plan: Present on admission and supported by tachycardia, leukocytosis, and elevated lactic acid level. Improving after saline bolus and antibiotics Blood cultures negative (2) Acute respiratory failure with hypoxia: Code(s): J96.01 - Acute respiratory failure with hypoxia Status: Acute Assessment and Plan: Presumably due to pneumonia in addition to likely underlying COPD, which the patient has apparently never been diagnosed with. BNP is markedly elevated, and he had an echocardiogram done last month with good left ventricular function Tolerating nasal cannula oxygen and off BiPAP Continue steroids antibiotics and bronchodilators (3) Atrial fibrillation with rapid ventricular response: Code(s): I48.91 - Unspecified atrial fibrillation Status: Acute Assessment and Plan: Transition from IV to oral Cardizem INR is therapeutic at 2.5. (4) Community acquired pneumonia: Qualifiers: Laterality: unspecified laterality Qualified Code(s): J18.9 - Pneumonia, unspecified organism Code(s): J18.9 - Pneumonia, unspecified organism Status: Acute Assessment and Plan: Continue azithromycin and ceftriaxone per antibiotic stewardship recommendations. Sputum for culture unsuccessful due to inability to produce Will send specimens for urinary antigens for pneumococcus and Legionella Continue antibiotics, steroids, and bronchodilators Mucinex and [facility] pulmonary toilet Modified barium swallow Patient is determined to go home May 05 to attend [facility] service for his daughter who approximately 2 weeks ago. (5) Tobacco dependence: Code(s): F17.200 - Nicotine dependence, unspecified, uncomplicated Status: Acute Assessment and Plan: He declined smoking cessation or nicotine patch (6) Rheumatoid arthritis: Qualifiers: Rheumatoid arthritis location: unspecified site Rheumatoid factor presence: unspecified presence Qualified Code(s): M06.9 - Rheumatoid arthritis, unspecified Code(s): M06.9 - Rheumatoid arthritis, unspecified Status: Acute Assessment and Plan: He takes methotrexate weekly and prednisone as needed. He has not required prednisone for quite some time Hold methotrexate due to acute infection DS: Summary Hospital Course Reason for hospitalization: Cough and dyspnea Hospital Course: Patient presented with cough and dyspnea. Found to have for pneumonia and atrial fibrillation with RVR. Responded well to IV diltiazem followed by amiodarone. Treated with doxycycline and ceftriaxone. And prednisone. Bronchodilators. Pulmonary toilet. Discharged home in improved and stable condition. Status at Discharge Functional status at discharge: independent ambulation Overall status at discharge: patient is progressing back to baseline Time Spent with Patient Time attestation: Total time spent providing and/or coordinating discharge services: 35 min Exam Narrative: Exam Narrative: HEENT: EOMI, PERRL, pharyngeal mucosa pink and intact NECK: No JVD CHEST: Coarse breath sounds throughout HEART: NL S1/S2, irregular and tachycardic ABDOMEN: BS+, soft, nontender, no mass, no bruits EXTREMITIES: No cyanosis, 2+ pretibial and ankle edema with chronic venous stasis changes NEUROLOGIC: CN intact and symmetric to inspection. MUSCULOSKELETAL: Tone and strength symmetric. PSYCH: Alert. Oriented to person, place, and time. DS: Data Data Completed and Pending Labs on da
[2019-05-05] MEDS: WARFARIN (*PBKC) 2 MG TABLET PO (15:52)
[2019-05-07 14:24] LABS: Legionella pneumophila Ag Ur Not Detected (Not Detected)
[2019-05-07 16:00] LABS: Pneumococcal Antigen Urine Not Detected (Not Detected)
== END 2019-05-05 15:55 | disposition home or self-care (01) | DRG 871 ==
LOC: ANHED 12:27 → ANHIMU 15:07
PROVIDERS: Physician Assistant; Admitting Provider Internal Medicine; Emergency Provider Emergency Medicine; PCP Internal Medicine; Visit Provider Internal Medicine
DX: A41.9 Sepsis, unspecified organism (principal); J18.9 Pneumonia, unspecified organism; J96.01 Acute respiratory failure with hypoxia; J44.0 Chronic obstructive pulmonary disease with (acute) lower respiratory infection; I48.91 Unspecified atrial fibrillation; F41.9 Anxiety disorder, unspecified; I25.10 Atherosclerotic heart disease of native coronary artery without angina pectoris; K21.9 Gastro-esophageal reflux disease without esophagitis; E03.9 Hypothyroidism, unspecified; M06.9 Rheumatoid arthritis, unspecified; Z86.73 Personal history of transient ischemic attack (TIA), and cerebral infarction without residual deficits; Z90.49 Acquired absence of other specified parts of digestive tract; Z85.118 Personal history of other malignant neoplasm of bronchus and lung
CPT/HCPCS: 36415; 36600; 71045; 80048; 82375; 82805; 83050; 83605; 83880; 84484; 85025; 85027; 85610; 85730; 87040; 87070; 87205; 87449; 87804; 87899; 92611; 93005; 93306; 93970; 94002; 94003; 94618; 94640; 94667; 96365; 96366; 96368; 96375; 99291; A9270; J0456; J0696; J1940; J2930; J7040; J7512

== ENCOUNTER 2019-05-09 10:54 | Outpatient (CLI) | payer MEDICARE, SELFPAY ==
[2019-05-09 11:37] LABS: INR 2.1; Prothrombin Time 21.6 Seconds (9.64-11.0)
[2019-05-09 12:36] LABS: Alanine Aminotransferase 30 U/L (16-63); Alkaline Phosphatase 85 U/L (46-116); Anion Gap 10.6 mmol/L (7-16); Aspartate Amino Transferase 11 U/L (15-37); Bilirubin,Total 0.6 mg/dL (0.00-1.00); Blood Urea Nitrogen 22 mg/dL (7-18); Calcium 8.8 mg/dL (8.5-10.1); Carbon Dioxide 35 mmol/L (21-32); Chloride 104 mmol/L (98-108); Estimated Glomerular Filt Rate > 60; Glucose 72 mg/dL (70-99); Osmolality Calculated 304 mOsm/kg (285-295); Potassium 3.6 mmol/L (3.5-5.1); Sodium 146 mmol/L (136-145); Total Protein 5.6 g/dL (6.4-8.2)
== END 2019-05-09 10:55 | disposition home or self-care (01) ==
PROVIDERS: PCP Internal Medicine; Visit Provider Internal Medicine
DX: I48.91 Unspecified atrial fibrillation (principal)
CPT/HCPCS: 36415; 80053; 85610

== ENCOUNTER 2019-05-31 08:53 | Outpatient (CLI) | payer MEDICARE, SELFPAY ==
[2019-05-31 09:24] LABS: INR 1.9; Prothrombin Time 19.7 Seconds (9.64-11.0)
[2019-05-31 09:29] LABS: BNP 334 pg/mL (0-100)
[2019-05-31 09:49] LABS: Anion Gap 8.7 mmol/L (7-16); Blood Urea Nitrogen 15 mg/dL (7-18); Calcium 8.1 mg/dL (8.5-10.1); Carbon Dioxide 35 mmol/L (21-32); Chloride 99 mmol/L (98-108); Estimated Glomerular Filt Rate 49; Glucose 92 mg/dL (70-99); Osmolality Calculated 290 mOsm/kg (285-295); Potassium 2.7 mmol/L (3.5-5.1); Sodium 140 mmol/L (136-145)
== END 2019-05-31 08:54 | disposition home or self-care (01) ==
PROVIDERS: PCP Internal Medicine
DX: I48.20 Chronic atrial fibrillation, unspecified (principal); I10 Essential (primary) hypertension; R06.00 Dyspnea, unspecified
CPT/HCPCS: 36415; 80048; 83880; 85610

== ENCOUNTER 2019-06-11 12:25 | Outpatient (CLI) | payer MEDICARE, SELFPAY ==
[2019-06-11 12:48] LABS: Basophils Absolute Auto 0.06 K/mm3 (0.00-0.10); Basophils Percent Auto 0.8 % (0.0-1.0); Eosinophils Absolute Auto 0.14 K/mm3 (0.02-0.50); Hematocrit 39.1 % (37.0-46.0); Hemoglobin 12.4 g/dL (12.4-15.3); Immature Granulocyte Absolute 0.02 K/mm3 (0.00-0.00); Immature Granulocyte Percent A 0.3 % (0.0-0.0); Lymphocytes Absolute Auto 1.35 K/mm3 (1.10-4.50); Lymphocytes Percent Auto 19.1 % (18.0-42.0); Mean Corpuscular HGB Conc 31.7 g/dL (32.0-36.0); Mean Corpuscular Hemoglobin 30.7 pg (27.0-31.0); Mean Corpuscular Volume 96.8 fL (78.0-102.0); Mean Platelet Volume 8.9 fl (8.7-11.0); Monocytes Percent Auto 4.2 % (2.0-11.0); Neutrophils Absolute Auto 5.2 K/mm3 (1.7-7.2); Neutrophils Percent Auto 73.6 % (50.0-70.0); Platelet Count Result 214 K/mm3 (150-420); Red Blood Count 4.04 M/mm3 (4.70-6.10); Red Cell Distribution Width 17.1 % (11.6-14.4); White Blood Count 7.1 K/mm3 (4.8-10.8)
[2019-06-11 13:02] LABS: Prothrombin Time 19.8 Seconds (9.64-11.0)
[2019-06-11 13:52] LABS: Erythrocyte Sedimentation Rate 38 mm/hr (0-20)
[2019-06-11 13:57] LABS: Alanine Aminotransferase 11 U/L (16-63); Albumin Level 2.9 g/dL (3.4-5.0); Alkaline Phosphatase 109 U/L (46-116); Aspartate Amino Transferase 11 U/L (15-37); Bilirubin,Total 0.3 mg/dL (0.00-1.00); Blood Urea Nitrogen 26 mg/dL (7-18); Calcium 9.6 mg/dL (8.5-10.1); Carbon Dioxide 35 mmol/L (21-32); Chloride 102 mmol/L (98-108); Estimated Glomerular Filt Rate 51; Glucose 76 mg/dL (70-99); Osmolality Calculated 297 mOsm/kg (285-295); Sodium 142 mmol/L (136-145); Total Protein 5.8 g/dL (6.4-8.2)
== END 2019-06-11 12:26 | disposition home or self-care (01) ==
PROVIDERS: PCP Internal Medicine
DX: I48.91 Unspecified atrial fibrillation (principal); M05.79 Rheumatoid arthritis with rheumatoid factor of multiple sites without organ or systems involvement; Z79.899 Other long term (current) drug therapy
CPT/HCPCS: 36415; 80053; 85025; 85610; 85652

== ENCOUNTER 2019-07-22 12:15 | Outpatient (CLI) | payer MEDICARE, SELFPAY ==
[2019-07-22 12:35] LABS: Basophils Absolute Auto 0.08 K/mm3 (0.00-0.10); Basophils Percent Auto 0.8 % (0.0-1.0); Eosinophils Absolute Auto 0.24 K/mm3 (0.02-0.50); Eosinophils Percent Auto 2.4 % (1.0-6.0); Hematocrit 36.2 % (37.0-46.0); Hemoglobin 11.3 g/dL (12.4-15.3); Immature Granulocyte Absolute 0.06 K/mm3 (0.00-0.00); Immature Granulocyte Percent A 0.6 % (0.0-0.0); Lymphocytes Absolute Auto 1.34 K/mm3 (1.10-4.50); Lymphocytes Percent Auto 13.2 % (18.0-42.0); Mean Corpuscular HGB Conc 31.2 g/dL (32.0-36.0); Mean Corpuscular Hemoglobin 31.3 pg (27.0-31.0); Mean Corpuscular Volume 100.3 fL (78.0-102.0); Mean Platelet Volume 8.5 fl (8.7-11.0); Monocytes Absolute Auto 0.56 K/mm3 (0.10-0.90); Monocytes Percent Auto 5.5 % (2.0-11.0); Neutrophils Absolute Auto 7.9 K/mm3 (1.7-7.2); Neutrophils Percent Auto 77.5 % (50.0-70.0); Platelet Count Result 217 K/mm3 (150-420); Red Blood Count 3.61 M/mm3 (4.70-6.10); Red Cell Distribution Width 16.9 % (11.6-14.4); White Blood Count 10.2 K/mm3 (4.8-10.8)
[2019-07-22 12:47] LABS: INR 1.8; Prothrombin Time 18.6 Seconds (9.64-11.0)
[2019-07-22 16:15] LABS: Alanine Aminotransferase 12 U/L (16-63); Albumin Level 2.9 g/dL (3.4-5.0); Alkaline Phosphatase 70 U/L (46-116); Aspartate Amino Transferase 9 U/L (15-37); Bilirubin,Total 0.3 mg/dL (0.00-1.00); Blood Urea Nitrogen 20 mg/dL (7-18); Calcium 8.6 mg/dL (8.5-10.1); Carbon Dioxide 30 mmol/L (21-32); Estimated Glomerular Filt Rate > 60; Glucose 78 mg/dL (70-99); Total Protein 5.9 g/dL (6.4-8.2)
[2019-07-22 17:29] LABS: Anion Gap 13.6 mmol/L (7-16); Chloride 103 mmol/L (98-108); Osmolality Calculated 297 mOsm/kg (285-295); Potassium 3.6 mmol/L (3.5-5.1); Sodium 143 mmol/L (136-145)
== END 2019-07-22 12:16 | disposition home or self-care (01) ==
PROVIDERS: PCP Internal Medicine
DX: I48.91 Unspecified atrial fibrillation (principal); C34.31 Malignant neoplasm of lower lobe, right bronchus or lung; C34.12 Malignant neoplasm of upper lobe, left bronchus or lung; C34.32 Malignant neoplasm of lower lobe, left bronchus or lung; R60.9 Edema, unspecified
CPT/HCPCS: 36415; 80053; 85025; 85610

== ENCOUNTER 2019-08-14 12:43 | Outpatient (CLI) | payer MEDICARE, SELFPAY ==
[2019-08-14 13:33] LABS: INR 3.9; Prothrombin Time 38.7 Seconds (9.64-11.0)
[2019-08-14 13:49] LABS: Cholesterol 112 mg/dL (0-200); HDL Direct 40 mg/dL (40-60); LDL Cholesterol Calculated 64 mg/dL (<130); Triglycerides 42 mg/dL (0-150)
[2019-08-16 21:10] LABS: Homocysteine 10.5 umol/L (<11.4)
[2019-08-18 04:42] LABS: Methylmalonic Acid 347 nmol/L (87-318)
== END 2019-08-14 12:44 | disposition home or self-care (01) ==
LOC: CHSLAB 12:53
PROVIDERS: PCP Internal Medicine
DX: C34.12 Malignant neoplasm of upper lobe, left bronchus or lung (principal); C34.31 Malignant neoplasm of lower lobe, right bronchus or lung; C34.32 Malignant neoplasm of lower lobe, left bronchus or lung; R60.9 Edema, unspecified; E78.5 Hyperlipidemia, unspecified; I48.91 Unspecified atrial fibrillation
CPT/HCPCS: 36415; 80061; 83090; 83921; 85610

== ENCOUNTER 2019-09-13 11:18 | Outpatient (CLI) | payer MEDICARE, SELFPAY ==
[2019-09-13 11:58] LABS: Blood Urea Nitrogen 38 mg/dL (7-18); Calcium 8.6 mg/dL (8.5-10.1); Carbon Dioxide 36 mmol/L (21-32); Chloride 96 mmol/L (98-108); Estimated Glomerular Filt Rate 36; Glucose 93 mg/dL (70-99); Osmolality Calculated 295 mOsm/kg (285-295); Sodium 138 mmol/L (136-145)
[2019-09-13 12:05] LABS: Prothrombin Time 63.6 Seconds (9.64-11.0)
[2019-09-13 12:11] LABS: INR 6.6
== END 2019-09-13 11:19 | disposition home or self-care (01) ==
LOC: CHSLAB 11:24
PROVIDERS: PCP Internal Medicine
DX: I48.91 Unspecified atrial fibrillation (principal); R78.89 Finding of other specified substances, not normally found in blood
CPT/HCPCS: 36415; 80048; 85610

== ENCOUNTER 2019-09-16 10:12 | Outpatient (CLI) | payer MEDICARE, SELFPAY ==
[2019-09-16 10:24] LABS: Basophils Absolute Auto 0.04 K/mm3 (0.00-0.10); Basophils Percent Auto 0.3 % (0.0-1.0); Eosinophils Absolute Auto 0.13 K/mm3 (0.02-0.50); Hematocrit 35.3 % (37.0-46.0); Immature Granulocyte Absolute 0.08 K/mm3 (0.00-0.00); Immature Granulocyte Percent A 0.6 % (0.0-0.0); Lymphocytes Absolute Auto 1.33 K/mm3 (1.10-4.50); Lymphocytes Percent Auto 10.7 % (18.0-42.0); Mean Corpuscular HGB Conc 31.2 g/dL (32.0-36.0); Mean Corpuscular Hemoglobin 30.6 pg (27.0-31.0); Mean Corpuscular Volume 98.1 fL (78.0-102.0); Mean Platelet Volume 8.2 fl (8.7-11.0); Monocytes Absolute Auto 0.14 K/mm3 (0.10-0.90); Monocytes Percent Auto 1.1 % (2.0-11.0); Neutrophils Absolute Auto 10.7 K/mm3 (1.7-7.2); Neutrophils Percent Auto 86.3 % (50.0-70.0); Platelet Count Result 201 K/mm3 (150-420); Red Cell Distribution Width 16.3 % (11.6-14.4); White Blood Count 12.5 K/mm3 (4.8-10.8)
[2019-09-16 10:40] LABS: Prothrombin Time 56.6 Seconds (9.64-11.0)
[2019-09-16 10:45] LABS: INR 5.8
[2019-09-16 11:25] LABS: Alanine Aminotransferase 11 U/L (16-63); Albumin Level 2.4 g/dL (3.4-5.0); Alkaline Phosphatase 83 U/L (46-116); Anion Gap 10.5 mmol/L (7-16); Aspartate Amino Transferase 14 U/L (15-37); Bilirubin,Total 0.5 mg/dL (0.00-1.00); Blood Urea Nitrogen 31 mg/dL (7-18); Calcium 8.4 mg/dL (8.5-10.1); Carbon Dioxide 33 mmol/L (21-32); Chloride 99 mmol/L (98-108); Estimated Glomerular Filt Rate 41; Glucose 109 mg/dL (70-99); Osmolality Calculated 295 mOsm/kg (285-295); Potassium 3.5 mmol/L (3.5-5.1); Sodium 139 mmol/L (136-145); Total Protein 5.8 g/dL (6.4-8.2)
== END 2019-09-16 10:13 | disposition home or self-care (01) ==
LOC: CHSLAB 10:15
PROVIDERS: PCP Internal Medicine; Visit Provider Internal Medicine Cardiovascular Disease
DX: C34.12 Malignant neoplasm of upper lobe, left bronchus or lung (principal); C34.31 Malignant neoplasm of lower lobe, right bronchus or lung; C34.32 Malignant neoplasm of lower lobe, left bronchus or lung; R60.9 Edema, unspecified; I48.91 Unspecified atrial fibrillation
CPT/HCPCS: 36415; 80053; 85025; 85610

== ENCOUNTER 2019-10-02 10:18 | Outpatient (CLI) | payer MEDICARE, SELFPAY ==
[2019-10-02 10:46] LABS: INR 1.4; Prothrombin Time 14.2 Seconds (9.64-11.0)
[2019-10-02 11:26] LABS: Anion Gap 11.4 mmol/L (7-16); Blood Urea Nitrogen 13 mg/dL (7-18); Calcium 8.1 mg/dL (8.5-10.1); Carbon Dioxide 29 mmol/L (21-32); Chloride 107 mmol/L (98-108); Estimated Glomerular Filt Rate 44; Glucose 87 mg/dL (70-99); Osmolality Calculated 297 mOsm/kg (285-295); Potassium 3.4 mmol/L (3.5-5.1); Sodium 144 mmol/L (136-145)
== END 2019-10-02 10:19 | disposition home or self-care (01) ==
PROVIDERS: PCP Internal Medicine; Visit Provider Internal Medicine Cardiovascular Disease
DX: I48.91 Unspecified atrial fibrillation (principal); E87.5 Hyperkalemia; R78.89 Finding of other specified substances, not normally found in blood
CPT/HCPCS: 36415; 80048; 85610

== ENCOUNTER 2019-12-06 09:03 | Outpatient (RCR) | payer MEDICARE, SELFPAY ==
[2019-09-24 12:27] LABS: INR 1.9; Prothrombin Time 19.1 Seconds (9.64-11.0)
[2019-09-24 12:35] LABS: Anion Gap 10.8 mmol/L (7-16); Blood Urea Nitrogen 14 mg/dL (7-18); Calcium 8.4 mg/dL (8.5-10.1); Carbon Dioxide 31 mmol/L (21-32); Chloride 103 mmol/L (98-108); Estimated Glomerular Filt Rate 46; Glucose 102 mg/dL (70-99); Osmolality Calculated 292 mOsm/kg (285-295); Potassium 3.8 mmol/L (3.5-5.1); Sodium 141 mmol/L (136-145)
[2019-10-10 10:44] LABS: INR 1.8
[2019-10-18 11:24] LABS: INR 1.8
[2019-10-31 10:08] LABS: INR 2.2
[2019-12-06 09:22] LABS: INR 1.8; Prothrombin Time 18.1 Seconds (9.64-11.0)
== END 2019-12-23 23:59 | disposition home or self-care (01) ==
LOC: CHSLAB 09:03
PROVIDERS: PCP Internal Medicine; Visit Provider Internal Medicine Cardiovascular Disease
DX: I48.91 Unspecified atrial fibrillation (principal); E87.5 Hyperkalemia; R78.89 Finding of other specified substances, not normally found in blood
CPT/HCPCS: 36415; 80048; 85610

== ENCOUNTER 2020-01-31 15:00 | Outpatient (RCR) | payer MEDICARE, SELFPAY ==
[2020-01-16 11:20] LABS: INR 2.7; Prothrombin Time 26.9 Seconds (9.64-11.0)
[2020-01-31 15:22] LABS: INR 2.9; Prothrombin Time 29.1 Seconds (9.64-11.0)
== END 2020-04-15 23:59 | disposition home or self-care (01) ==
LOC: CHSLAB 15:00
PROVIDERS: PCP Internal Medicine; Visit Provider Internal Medicine Cardiovascular Disease
DX: I48.91 Unspecified atrial fibrillation (principal)
CPT/HCPCS: 36415; 85610